=== PATIENT | female | born 1990 | race Caucasian/White ===

== ENCOUNTER → 2017-05-24 | Outpatient (REF) | payer OTHER, SELFPAY ==
[2017-06-02 14:12] LABS: 17 HYDROXY PROGESTERONE 231 ng/dL (.); DEOXYCORTICOSTERONE LEVEL 1132 ng/dL (.)
== END ==
LOC: M LABDRAW1 09:12
PROVIDERS: ATTEND Internal Medicine Endocrinology, Diabetes & Metabolism
DX: E25.0 Congenital adrenogenital disorders associated with enzyme deficiency (principal)

== ENCOUNTER → 2017-10-19 | Outpatient (CLI) | payer BC ==
[2017-10-19 13:47] LABS: TESTOSTERONE 78 NG/DL (14-76)
== END ==
LOC: M WUC 10:01
DX: E25.0 Congenital adrenogenital disorders associated with enzyme deficiency (principal)
CPT/HCPCS: 84403

== ENCOUNTER → 2017-10-20 | Outpatient (REF) | payer BC | LOC: M LAB REF 12:38 | DX: E25.0 Congenital adrenogenital disorders associated with enzyme deficiency (principal) | CPT/HCPCS: 83491 ==